=== PATIENT | female | born 1965 | race Caucasian/White ===

== ENCOUNTER 2023-03-30 16:25 | Outpatient (CLI) | payer BC, SELFPAY ==
--- NOTE | ~2023-03-30 | CT_ITS ---
EXAMINATION: CT abdomen pelvis wo con DATE: 03/30/2023 16:51 INDICATION: Flank pain TECHNIQUE: Computed tomography (CT) of the abdomen and pelvis was performed without intravenous contr ast. Automated exposure control and iterative reconstruction technique were employed. The dose-length product was 336.95 mGy-cm. COMPARISON: None FINDINGS: Lung bases are clear. Heart size is normal. No pericardial or pleural effusion. Small sliding-type hi atal hernia. Liver, gallbladder, spleen, pancreas and bilateral adrenal glands are normal. Kidneys an d ureters are normal with no urolithiasis, hydroureteronephrosis or perinephric/ureteral stranding. B ladder is decompressed. The uterus is not identified and has likely been surgically resected. No abno rmal bowel wall thickening or obstruction. Very small amount of likely physiologic free fluid in the deep pelvis. A couple phleboliths in the left hemipelvis. No pathologically enlarged or pelvic lympha denopathy. Severe spondylosis at the lumbosacral junction and mild spondylosis in the more cephalad l umbar spine. Small sclerotic bone island versus bone infarct at the right posterior iliac spine. IMPRESSION: 1. No urolithiasis or acute intra-abdominal/pelvic process. 2. Small sliding-type hiatal hernia. Reviewed, dictated and finalized at location A.
== END 2023-03-30 16:26 | disposition home or self-care (01) ==
PROVIDERS: PCP Internal Medicine; Visit Provider Internal Medicine
DX: K44.9 Diaphragmatic hernia without obstruction or gangrene (principal); R10.9 Unspecified abdominal pain
CPT/HCPCS: 74176

== ENCOUNTER 2023-11-12 05:53 | Day surgery (SDC) | payer OTHER, SELFPAY ==
[2023-10-26 13:38] VITALS: BMI 22.7
--- NOTE | 2023-11-11 08:08 | P.PNAN_ITS ---
Anes - Initial Pre Proc Eval Procedure: Operation Date: 11/12/23 07:30 Proposed Procedures p Bilateral Breast Reduction Mammoplasty with Removal of Concerning Masses - Devora William MD Date/Time: 11/11/23 08:08 Surgeon: Devora William MD Pre Op Diagnosis: Breast Pain Patient Data Age: 58 Gender: F Height: 1.66 m Weight: 63 kg Allergies Allergy/AdvReac Type Severity Reaction Status Date / Time Sulfa (Sulfonamide Allergy Mild Rash Verified 11/02/23 10:03 Antibiotics) Penicillins Allergy Unknown Unknown Verified 11/02/23 10:03 Home Medications Medication Instructions Recorded Confirmed Type doxycycline hyclate 50 mg capsule 50 mg PO DAILY 09/21/23 10/26/23 History estradiol 0.25 mg/0.25 gram (0.1 1 packet transdermal DAILY 09/21/23 10/26/23 History %) transdermal gel packet folic acid 1 mg tablet 1 mg PO DAILY 09/21/23 10/26/23 History levothyroxine 75 mcg capsule 75 mcg PO DAILY 09/21/23 10/26/23 History nknuheqg-kjlj-afvkpga 200 1 tablet PO DAILY 10/26/23 10/26/23 History mg-biotin 450 mcg-vit D3 400 unit-FA tablet Results Review: All pre-operative results and documents have been reviewed as part of the pre- operative evaluation. [facility] Past Medical History Medical History (Updated 11/11/23 @ 08:08 by Gary Ortiz DO) Hypothyroidism Rheumatoid arthritis Surgical History Surgical History (Updated 11/11/23 @ 08:08 by Gary Ortiz DO) History of hysterectomy Family History Family History (Updated 09/21/23 @ 10:07 by Paula Garduno CMA) Father Alcoholism Hypertension Depression Heart disease Rheumatoid arthritis Mother Asthma Hypertension Depression Thyroid disorder Sibling Skin cancer (melanoma) Other Hypertension Grandparent Diabetes mellitus Alcoholism Depression Social History Social History (Updated 09/21/23 @ 09:37 by Paula Garduno CMA) Smoking status: Never smoker Second hand tobacco smoke exposure: No Alcohol intake: never Substance use: current Substance use type: marijuana Other substance usage details: daily Lack of Transportation: No Lack of Food: Never True Current Housing: I Have Housing Concerned About Future Housing: No Difficulty Paying Gas/Electric Bills: No Difficulty Paying for Meds: No Currently Unemployed: No Education: Trade/Vocational Certificate Difficulty w/ Childcare or Family Care: No Living arrangements: with family Spiritual care concerns: No Anes - Eval Final PreProcedure Day of Procedure 11/11/23 08:08 Patient weight: obese Heart: regular rate and rhythm Lungs: clear to auscultation Airway: Mallampati scale class II Neurological: alert and oriented Last oral intake: >/= 8 hours ASA classification: III Emergent: no Anesthetic plan: proceed Anesthesia type and monitoring: general LMA and standard monitoring Results Review: All pre-operative results and documents have been reviewed as part of the pre- operative evaluation. Informed Consent: The patient's anesthetic plan and its attendant risks and benefits were discussed with the patient/family/POA. Questions were solicited and answers provided to the satisfaction of the patient/family/POA.
[2023-11-12] VITALS (9 sets, daily range): BP systolic 100–132; BP diastolic 45–65; PULSE 45–70; RESP 14–16; TEMP 36.4–37.2; O2SAT 94–100
[2023-11-12] MEDS: LACTATED RINGERS 1,000 ML 30 ML IV CONT ×2 (06:45→10:17)
[2023-11-12] MEDS: SCOPOLAMINE 1 MG PATCH 1 PATCH TRANSDERM (06:45)
--- NOTE | 2023-11-12 07:03 | WPDHPUPDATE1 ---
History and Physical Update Update Date/Time: 11/12/23 07:03 Patient seen and examined in pre-operative holding area. No interval change in medical history or symptoms. Patient remembers previous discussion of benefits and alternatives to procedure. Continues to desire to proceed with bilateral breast reduction and mass excisions. I reviewed the risks including but not limited to bleeding ,infection, asymmetry, undesireable cosmetic appearance, partial/total skin/nipple loss, no change or worsening of symptoms, change in sensation. I discussed the possible use of assistants and their level of participation in the case. Patient stated understanding and signed the consent form wishing to proceed
--- NOTE | 2023-11-12 07:04 | W.PM.PROC2 ---
Procedure Note - Detailed Date of Procedure 11/12/23 Pre-op Diagnosis mastodynia and undesireable cosmetic appearance Post-op Diagnosis Same Procedure Performed bilateral breast reduction with mass excision Surgeon Devora William MD Anesthesia General Description of Procedure Patient was seen in the preoperative holding area where consent form was signed and breast were marked for an inferior pedicle Anderson pattern reduction.? She was taken back to the operating room placed on the table in a supine position.? Time-out was performed with Anesthesia, surgeon, and staff high Gram patient's name site and surgery to be performed.? SCDs were placed on the lower extremities and inflated.? Antibiotics were given IV.? After general anesthesia was administered the breasts were prepped and draped in usual sterile fashion. I took my attention to the right breast where a saline moistened lap pad and Gorge clamp was used to create a breast tourniquet.? 38 mm nipple Sizer was used to circumscribe the nipple-areolar complex and then I proceeded with incision with 15 blade scalpel and de-epithelialized in 9 cm wide inferior pedicle.? MMI other skin incisions and then used Bovie cautery to elevate my superior skin flaps and Garth's plane down to the level of the chest wall exposing the entire breast tissue.? I proceeded with resection of 47 grams grams of tissue from the right breast not including two breast masses as those were placed directly in formalin. One mass was right upper outer quadrant and the other was suprareolar. Clip placed at base of mass excisions and oversewn with 2-0 vicryl.? I irrigated with normal saline and hemostasis with Bovie cautery.? The pedicles plicated with 2-0 Vicryl suture.? This appeared to be a reasonable size and shape for the patient's reconstructive desires.? After further round of irrigation hemostasis I secured the T junction with 2-0 Prolene suture 3-0 Vicryl was used for dermis the nipple was brought out 5 cm above the inframammary fold at the most prominent portion of the breast at the breast midline.? This was secured with 3-0 Vicryl suture and 4-0 Monocryl for subcuticular closure.? The nipple appeared viable with good cap refill. Next item attention to the left breast where the same procedure was performed using the breast tourniquet then 38 mm nipple Sizer and de epithelializing a 9 cm wide inferior pedicle.? I used 15 blade scalpel Bovie cautery to the Bijan skin incisions and elevated skin flaps to converse plane down to the chest wall to expose entire breast tissue.? I proceeded with resection of 64 g of tissue from the left breast with Bovie cautery not including two separate masses that were placed directly in formalin. these were from upper outer and suprareolar quadrant. A clip was placed at base of resection and oversewn with 2-0 vicryl.? The left breast appeared to be symmetric in size and volume to the right breast after resection of this tissue.? I irrigated with normal saline and hemostasis with Bovie cautery.? I plicated the pedicle 2-0 Vicryl suture.? 2-0 Prolene was used to secure the T-junction.? 3-0 Vicryl was used for dermis and 4-0 Monocryl for subcuticular closure.? Again the nipple was brought up 5 cm above the inframammary fold at the most prominent portion of the breast at the breast midline and secured with 3-0 Vicryl suture and 4-0 Monocryl.? The nipple appeared viable with good cap refill.? The symmetry was reasonable to the right breast.? I injected 20 cc of 1% lidocaine with epinephrine episode working plane along the anterior axilla line inframammary fold of each breast.? A dressing of Mastisol Steri-Strips 4x4s ABDs and a breast binder was then applied patient was awakened anesthesia and transferred to recovery in stable condition.? Complications: None Estimated blood loss: 30 cc Disposition: Patient tolerated the procedure well and be going later today. AM Billing Surgery - Charge Forward: S
--- NOTE | 2023-11-12 07:23 | WPDANESEPPF ---
Anes - Initial Pre Proc Eval Procedure: Operation Date: 11/12/23 07:30 Proposed Procedures p Bilateral Breast Reduction Mammoplasty with Removal of Concerning Masses - Devora William MD Date/Time: 11/12/23 07:23 Surgeon: Devora William MD Pre Op Diagnosis: Breast Pain Patient Data Age: 58 Gender: F Height: 1.66 m Weight: 59.8 kg Last Vital Signs Temp 37.2 C 11/12/23 06:31 Pulse 53 L 11/12/23 06:31 Resp 14 11/12/23 06:31 BP 102/54 L 11/12/23 06:31 Pulse Ox 100 11/12/23 06:31 O2 Del Method Room Air 11/12/23 06:31 Allergies Allergy/AdvReac Type Severity Reaction Status Date / Time Sulfa (Sulfonamide Allergy Mild Rash Verified 11/12/23 06:27 Antibiotics) Penicillins Allergy Unknown Unknown Verified 11/12/23 06:27 Home Medications Medication Instructions Recorded Confirmed Type doxycycline hyclate 50 mg capsule 50 mg PO DAILY 09/21/23 11/12/23 History estradiol 0.25 mg/0.25 gram (0.1 1 packet transdermal DAILY 09/21/23 11/12/23 History %) transdermal gel packet folic acid 1 mg tablet 1 mg PO DAILY 09/21/23 11/12/23 History levothyroxine 75 mcg capsule 75 mcg PO DAILY 09/21/23 11/12/23 History kgxxydyn-vrsg-blljqrw 200 1 tablet PO DAILY 10/26/23 11/12/23 History mg-biotin 450 mcg-vit D3 400 unit-FA tablet Patient hx anesthesia problems: none Family hx anesthesia problems: none Results Review: All pre-operative results and documents have been reviewed as part of the pre-operative evaluation. COUNT INCLUDES [facility] Past Medical History Medical History Hypothyroidism Rheumatoid arthritis Surgical History Surgical History History of hysterectomy Family History Family History Father Alcoholism Hypertension Depression Heart disease Rheumatoid arthritis Mother Asthma Hypertension Depression Thyroid disorder Sibling Skin cancer (melanoma) Other Hypertension Grandparent Diabetes mellitus Alcoholism Depression Social History Social History Smoking status: Never smoker Second hand tobacco smoke exposure: No Alcohol intake: never Substance use: current Substance use type: marijuana Other substance usage details: daily Lack of Transportation: No Lack of Food: Never True Current Housing: I Have Housing Concerned About Future Housing: No Difficulty Paying Gas/Electric Bills: No Difficulty Paying for Meds: No Currently Unemployed: No Education: Trade/Vocational Certificate Difficulty w/ Childcare or Family Care: No Living arrangements: with family Spiritual care concerns: No Anes - Eval Final PreProcedure Day of Procedure 11/12/23 07:23 Patient weight: normal Heart: regular rate and rhythm Lungs: clear to auscultation Airway: Mallampati scale class II Neurological: alert and oriented Last oral intake: >/= 8 hours ASA classification: II Emergent: no Anesthetic plan: proceed Anesthesia type and monitoring: general LMA and standard monitoring Results Review: All pre-operative results and documents have been reviewed as part of the pre-operative evaluation. Informed Consent: The patient's anesthetic plan and its attendant risks and benefits were discussed with the patient/family/POA. Questions were solicited and answers provided to the satisfaction of the patient/family/POA.
[2023-11-12] MEDS: CLINDAMYCIN 900 MG/NS 50 ML 900 MG/50 ML PIGGYBACK 50 MG IVPB (07:30)
[2023-11-12] MEDS: LIDO 1%/EPINEPHRINE 1:100,000 20 ML VIAL 30 ML INFILTRATE (09:17)
[2023-11-12] MEDS: fentaNYL CITRATE INJ (*CRX) 100 MCG/2 ML VIAL 25 MCG IV PUSH ×4 (10:45→11:06)
--- NOTE | 2023-11-12 11:02 | SUR.PHASEI ---
1102; PT DOZES OFF, SAO2 DROPPED TO 86% ON ROOM AIR BRIEFLY. ENCOURAGED PT TO TAKE SLOW DEEP BREATHS. SAO2 INCREASES BACK TO 99%
--- NOTE | 2023-11-12 11:30 | WPDANESPN ---
Anes - Prog Note Post-Op Date/Time: 11/12/23 11:30 Cardiovascular status: normal Respiratory status: normal Airway patency: baseline Mental status: baseline Post-Op hydration status: normal Vital Signs: Last Vital Signs Temp 36.6 C 11/12/23 11:00 Pulse 48 L 11/12/23 11:12 Resp 14 11/12/23 11:12 BP 104/50 L 11/12/23 11:12 Pulse Ox 98 11/12/23 11:12 O2 Del Method Room Air 11/12/23 11:12 O2 Flow Rate 6 11/12/23 10:30 Pain Score (VAS): 0 I/O: Intake & Output 11/11/23 11/12/23 11/12/23 23:59 07:59 15:59 Intake Total 250 Balance 250 Patient Feedback: Patient satisfied with anesthetic care.
[2023-11-12] MEDS: oxyCODONE HCL (*CRX) 5 MG TAB IR PO (11:47)
--- NOTE | 2023-11-12 12:55 | SUR.PHASEII ---
1145; pt heart rate 40's. Dr Villagran notified, preop heart rate 53. Pt asymptomatic BP stable.
== END 2023-11-12 12:20 | disposition home or self-care (01) ==
PROVIDERS: PCP Internal Medicine; Visit Provider Plastic Surgery
PROC: 0HBV0ZZ Excision of Bilateral Breast, Open Approach (ICD-10-PCS; CPT 19318; principal; 2023-11-12 07:30)
DX: N64.4 Mastodynia (principal)
CPT/HCPCS: 19318

== ENCOUNTER 2023-11-12 16:42 | Outpatient (NON) | payer BC, SELFPAY | END 2023-11-12 16:43 | disposition home or self-care (01) | LOC: ANHLAB 16:44 | PROVIDERS: PCP Internal Medicine; Visit Provider Plastic Surgery | DX: D24.1 Benign neoplasm of right breast (principal); R92.0 Mammographic microcalcification found on diagnostic imaging of breast; N60.12 Diffuse cystic mastopathy of left breast; N60.11 Diffuse cystic mastopathy of right breast | CPT/HCPCS: 88305; 88307 ==

== ENCOUNTER 2024-05-16 09:26 | Outpatient (CLI) | payer BC, SELFPAY ==
--- NOTE | ~2024-05-16 | MM_ITS ---
EXAMINATION: MM diagnostic anrdy BI w german HISTORY: Outside institution recommend a 6 month follow-up exam. Patient is status post interval devin st reduction and bilateral breast biopsy since prior exam. TECHNIQUE: 3-D tomosynthesis images of the bilateral breasts were performed and synthetic 2-D images were generated. CAD analysis was submitted and interpreted. COMPARISON: 10/29/2023, 08/14/2014 FINDINGS: Breast parenchyma is extremely dense, which lowers the sensitivity of mammography. No suspi cious mass lesion or distortion seen. There are findings compatible with postoperative changes relate d to bilateral reduction mammoplasty. Benign calcifications are present at the upper, outer left devin st. Bilateral biopsy clips present. IMPRESSION: No mammographic evidence of malignancy. BI-RADS Category 2: Benign finding(s). Reviewed, dictated and finalized at location .
== END 2024-05-16 09:27 ==
LOC: MICIMG 09:28
PROVIDERS: PCP Internal Medicine; Visit Provider Physician Assistant Surgical
DX: N64.4 Mastodynia (principal)
CPT/HCPCS: 77062; 77066; G0279

== ENCOUNTER 2024-07-11 10:36 | Outpatient (CLI) | payer BC, SELFPAY ==
--- NOTE | ~2024-07-11 | US_ITS ---
US breast RT limited 07/11/2024 11:25 Indication: History of previous breast reduction surgery. There is discoloration of the right breast compared to the left. Previous history of antibiotics for similar issue in January. Patient currently e xperiencing pain. Procedure: High-resolution Limited ultrasound of the right breast Comparison: No prior studies for comparison. Findings: At 6:00, 6 cm from the nipple near the incisional area there is a complex fluid collection with heterogeneous internal echoes. This fluid collection measures 2.7 cm. There is peripheral vascul arity. Impression: 1: Complex 2.7 cm fluid collection near the incisional site for previous breast reduction surgery. Th is may represent a postoperative seroma/hematoma or abscess. BI-RADS CATEGORY 3-PROBABLY BENIGN FINDING RECOMMENDATION: 3 month follow-up recommended following appropriate therapy. Reviewed, dictated and finalized at location B. Impression: 1: Complex 2.7 cm fluid collection near the incisional site for previous breast reduction surgery. This may represent a postoperative seroma/hematoma or absce ss. BI-RADS CATEGORY 3-PROBABLY BENIGN FINDING RECOMMENDATION: 3 month follow-up recommended following appropriate therapy.
== END 2024-07-11 10:37 | disposition home or self-care (01) ==
LOC: ANHIMG 10:37
PROVIDERS: PCP Internal Medicine; Visit Provider Surgery
DX: R92.8 Other abnormal and inconclusive findings on diagnostic imaging of breast (principal); N64.4 Mastodynia
CPT/HCPCS: 76642

== ENCOUNTER 2024-09-01 11:37 | Outpatient (CLI) | payer BC, SELFPAY ==
--- NOTE | ~2024-09-01 | US_ITS ---
US breast RT limited 09/01/2024 11:54 Indication: Right breast pain Procedure: High-resolution Limited ultrasound of the right breast Comparison: Ultrasound dated 07/11/2024 Findings: In the area of previous sonographic abnormality at 6:00, 6 cm from the nipple there is a 5 mm cyst. The large fluid collection seen on prior examination has resolved. There are no suspicious m asses in the right breast to suggest malignancy. Impression: 1: Near-complete resolution of complex cystic mass in the right breast since prior examination. Small residual 5 mm cyst present. Routine yearly screening mammogram and regular clinical breast examination are recommended. BI-RADS CATEGORY 2 - BENIGN FINDINGS Reviewed, dictated and finalized at location B. Impression: 1: Near-complete resolution of complex cystic mass in the right breast since pr ior examination. Small residual 5 mm cyst present. Routine yearly screening mammogram and regular clinical breast examination are recommended. BI-RADS CATEGORY 2 - BENIGN FINDINGS
== END 2024-09-01 11:38 | disposition home or self-care (01) ==
PROVIDERS: PCP Internal Medicine; Visit Provider Internal Medicine
DX: N64.4 Mastodynia (principal)
CPT/HCPCS: 76642